=== PATIENT | male | born 1935 | race Caucasian/White ===

== ENCOUNTER 2018-07-10 12:44 | Outpatient (CLI) | payer MEDICARE, BC ==
[~2018-07-10] VITALS: Ht 172.7 cm; Wt 79.4 kg
[2018-07-10 13:15] LABS: TOTAL HEMOGLOBIN 9.5 G/dl (14.0-18.0)
[2018-07-10] MEDS ORDERED: albuterol 2.5 MG/3 ML nebule NEB ONE (13:30)
== END 2018-07-10 23:59 | disposition home or self-care (01) ==
LOC: RT 12:44
PROVIDERS: ATTEND Internal Medicine Cardiovascular Disease
DX: I48.0 Paroxysmal atrial fibrillation (principal); R06.02 Shortness of breath; R06.09 Other forms of dyspnea; F17.210 Nicotine dependence, cigarettes, uncomplicated; Z79.899 Other long term (current) drug therapy
CPT/HCPCS: 85018; 94010; 94727; 94729